=== PATIENT | male | born 1950 | race American Indian/Alaskan Native ===

== ENCOUNTER 2021-03-15 17:07 | Emergency (ER) | payer OTHER ==
--- NOTE | 2021-03-15 20:28 | Event Note ---
ED Screening Note ED Screening Note: 70-year-old -[place] male with past medical history of hypertension presents emerged department complaining of developing presyncope and lightheadedness resulting in him passing out falling on his head striking the top of his head on the concrete ground at work been out for about a minute according to coworkers. Reports no palpitations or chest pain states he feels he may have just been dehydrated but is unsure. Reports taking no blood thinners only takes hypertensive medication which he states he is compliant This initial assessment/diagnostic orders/clinical plan/treatment(s) is/are subject to change based on patients health status, clinical progression and re- assessment by fellow clinical providers in the ED. Further treatment and workup at subsequent clinical providers discretion. Patient/guardian urged not to elope from the ED as their condition may be serious if not clinically assessed and managed. Initial orders include: We will do a syncope evaluation including a CT of the head due to the precipitating factors leading to the head trauma and head trauma itself
[2021-03-15 20:51] LABS: Basophils # (Auto) 0.1 K/mm3 (0.0-0.1); Eosinophils # (Auto) 0.1 K/mm3 (0.0-0.4); Eosinophils % (Auto) 1.2 % (0.0-4.3); Hemoglobin 14.1 gm/dl (11.8-15.2); Lymphocytes # (Auto) 1.6 K/mm3 (1.2-5.4); Mean Corpuscular HGB Conc 34 % (32-34); Mean Corpuscular Volume 93 fl (84-94); Monocytes # (Auto) 0.9 K/mm3 (0.0-0.8); Monocytes % (Auto) 10.9 % (0.0-7.3); Platelet Count 282 K/mm3 (140-440); Red Blood Count 4.43 M/mm3 (3.65-5.03); Red Cell Distribution Width 13.8 % (13.2-15.2)
--- NOTE | 2021-03-15 21:04 | XRay Report ---
CHEST 2 VIEWS INDICATION / CLINICAL INFORMATION: Syncope. COMPARISON: 09/24/2014 FINDINGS: SUPPORT DEVICES: None. HEART / MEDIASTINUM: No significant abnormality. LUNGS / PLEURA: No significant pulmonary or pleural abnormality. No pneumothorax. ADDITIONAL FINDINGS: No significant additional findings. IMPRESSION: 1. No acute findings. Signer Name: Flip Marcial MD Signed: 03/15/2021 8:59 PM Workstation Name: [id number]
[2021-03-15 21:47] LABS: Alanine Aminotransferase 14 units/L (7-56); Albumin 3.7 g/dL (3.9-5); BUN/Creatinine Ratio 20; Blood Urea Nitrogen 18 mg/dL (9-20); Calcium 8.9 mg/dL (8.4-10.2); Hemolysis Index 2
--- NOTE | 2021-03-15 21:54 | Cat Scan Report ---
CT head/brain wo con INDICATION / CLINICAL INFORMATION: 70 years Male; Syncope. TECHNIQUE: Routine CT head without contrast. All CT scans at this location are performed using CT dos e reduction for ALARA by means of automated exposure control. COMPARISON: 09/24/2014 FINDINGS: BRAIN / INTRACRANIAL CONTENTS: Corpus striatal type infarcts suggested bilaterally. Otherwise, no acute hemorrhage, mass effect, midline shift, hydrocephalus, or acute, large territori al infarct. Mild, diffuse cerebral atrophy. There are moderate areas of decreased attenuation in the white matter of the cerebral hemispheres, as well as the gangliocapsular regions. These are nonspecific findings and may be related to microangio yessica (hypertension, diabetes, atherosclerosis), given the patient's age. Pontine disease noted. Find ings have progressed from prior exam. CRANIOCERVICAL JUNCTION: No significant abnormality. ORBITS: No significant abnormality of visualized orbits. SINUSES / MASTOIDS: Visualized paranasal sinuses and mastoid air cells are essentially clear. ADDITIONAL FINDINGS: Subcutaneous soft tissue swelling seen in the left parietal region posteriorly. There is no signs of underlying calvarial fracture. IMPRESSION: 1. No focal mass, and cranial hemorrhage, hydrocephalus, or acute, large territorial infarct. Follow- up with diffusion imaging by MRI, as clinically warranted. Signer Name: Demarcus Meng MD, III Signed: 03/15/2021 9:49 PM Workstation Name: [email or web address]
--- NOTE | 2021-03-16 01:26 | Emergency Department Report ---
Head Injury w/o Laceration - HPI Chief Complaint: Fall Stated Complaint: HEAD INJURY Time Seen by Provider: 03/16/21 01:15 Occurred When: Today Mechanism: Fall Location: Occipital Severity: moderate Head Inj w/o Lac: Yes Headache, Yes Swelling, No Loss of Consciousness, No Nausea, No Blurred Vision, No Altered Mental Status, No Focal Deficit, No Bruising, No Break in Skin, No Bleeding Other History: Patient is a 70-year-old male that presents emergency room with a fall at work. Patient states he hit the back of his head. Patient states he has a lump on the back of his head. Patient denies loss of conscious. Patient states he has a headache. Federico states his headache is a 5 out of 10. Patient states his pain is better with rest and worse with palpation of his scalp. Patient denies dizziness. Patient states he slipped and fell backwards. Patient denies neck pain. Patient denies any other physical symptoms. Patient denies any other pain. Patient denies chest pain or shortness of breath. Patient denies recent travel. Patient denies recent international travel. Patient denies exposure to the novel coronavirus. Patient denies sick contacts. Patient denies fever and chills. Patient denies cough. Patient denies diarrhea. Patient denies coming in contact with anybody with symptoms of the no pete coronavirus. ED General PMH - Past Medical History General Medical History: hypertension Surgical History: noncontributory - Family History Significant Family History: no pertinent family hx - Social History Smoking Status: Former Smoker Alcohol Use: none Drug Use: N ED Neuro ROS - Review of Systems Constitutional: no symptoms reported Eyes (ROS): no symptoms reported Ears, Nose, Mouth, Throat: see HPI Respiratory: no symptoms reported Cardiology: no symptoms reported Gastrointestinal/Abdominal: no symptoms reported Genitourinary: no symptoms reported Musculoskeletal: no symptoms reported Skin: no symptoms reported Neurological: no symptoms reported Endocrine: no symptoms reported Hematologic/Lymphatic: no symptoms reported All Other Systems: Reviewed and Negative Head Injury W/O Lac Exam - Exam General: Vital signs noted. No distress. Alert and acting appropriately. Head: Yes Pupils are PERRL, No Hemotympanum, No Hematoma/Ecchymosis, No Epistaxis, No Stepoff/Deformity, No Laceration, No Abrasion Chest, Abd, & Ext: Yes Clear Lung Sounds, Yes Regular Heart Rhythm, No Neck Pain, No Chest Injury/Pain, No Heart Murmur, No Abdominal Tenderness, No Back Tenderness, No Extremity Injury Neuroligical (Head Inj W/O Lac: Yes Normal Speech, Yes Normal Gait, No Lethargy, No Disorientation, No Focal Numbness, No Focal Weakness Exam: The patient appeared well nourished and normally developed. Vital signs as documented. Head exam is unremarkable except for hematoma noted to the occipital region.. Neck is without jugular venous distension, thyromegaly, or carotid bruits. Carotid upstrokes are brisk bilaterally. Lungs are clear to auscultation and percussion. ED Disposition Clinical Impression: Fall Qualifiers: Encounter type: initial encounter Qualified Code(s): W19.XXXA - Unspecified fall, initial encounter Head injury Qualifiers: Encounter type: initial encounter Qualified Code(s): S09.90XA - Unspecified injury of head, initial encounter Headache Qualifiers: Headache type: post-traumatic Headache chronicity pattern: acute headache Intractability: not intractable Qualified Code(s): G44.319 - Acute post- traumatic headache, not intractable Scalp hematoma Qualifiers: Encounter type: initial encounter Qualified Code(s): S00.03XA - Contusion of scalp, initial encounter Disposition: DC- TO HOME OR SELFCARE Is pt being admited?: No Does the pt Need Aspirin: No Condition: Stable Instructions: Head Injury, Adult, Facial or Scalp Contusion, Contusion Additional Instructions: Patient to follow-up with primary care in 2 to 3 days. Patient to rest. Patient to increase water. Patient to avoid strenuous exercise or heavy lifting until cleared by primary care. Patient to take Tylenol or ibuprofen as needed for pain. . Patient to return to the ER if condition worsens, changes or new symptoms arise. Referrals: PRIMARY CARE, [Primary Care Provider] - 2-3 Days Time of Disposition: 01:30 Medical Decision Making - Lab Data Result Diagrams: 03/15/21 20:41 03/15/21 20:41 - Radiology Data Radiology results: report reviewed, image reviewed Interpreted by me: Chest x-ray: No pneumonia, no pneumothorax, no foreign body, no osseous findings, no acute findings CT head/brain wo con INDICATION / CLINICAL INFORMATION: 70 years Male; Syncope. TECHNIQUE: Routine CT head without contrast. All CT scans at this location are performed using CT dose reduction for ALARA by means of automated exposure control. COMPARISON: 09/24/2014 FINDINGS: BRAIN / INTRACRANIAL CONTENTS: Corpus striatal type infarcts suggested bilaterally. Otherwise, no acute hemorrhage, mass effect, midline shift, hydrocephalus, or acute, large territorial infarct. Mild, diffuse cerebral atrophy. There are moderate areas of decreased attenuation in the white matter of the cerebral hemispheres, as well as the gangliocapsular regions. These are nonspecific findings and may be related to microangiopathy (hypertension, diabetes, atherosclerosis), given the patient's age. Pontine disease noted. Findings have progressed from prior exam. CRANIOCERVICAL JUNCTION: No significant abnormality. ORBITS: No significant abnormality of visualized orbits. SINUSES / MASTOIDS: Visualized paranasal sinuses and mastoid air cells are essentially clear. ADDITIONAL FINDINGS: Subcutaneous soft tissue swelling seen in the left parietal region posteriorly. There is no signs of underlying calvarial fracture. IMPRESSION: 1. No focal mass, and cranial hemorrhage, hydrocephalus, or acute, large territorial infarct. Follow-up with diffusion imaging by MRI, as clinically warranted. CHEST 2 VIEWS INDICATION / CLINICAL INFORMATION: Syncope. COMPARISON: 09/24/2014 FINDINGS: SUPPORT DEVICES: None. HEART / MEDIASTINUM: No significant abnormality. LUNGS / PLEURA: No significant pulmonary or pleural abnormality. No pneumothorax. ADDITIONAL FINDINGS: No significant additional findings. IMPRESSION: 1. No acute findings. - Decision Making Attributes Decision statement: Patient is a 70-year-old male that presents emergency room with complaints of headache and fall at work. Patient had a head CT which was negative for acute finding. Patient had a chest x-ray which was negative for acute finding. Patient had labs done which were essentially unremarkable. Patient is stable for discharge. Patient discharged home. Differential diagnosis: ICH, head injury, fall, I discussed all results and clinical findings with patient. I discussed plan of care with patient. Patient agrees with plan of care. Patient is stable for discharge. Patient will be discharged home. Patient given discharge instructions. Patient voiced understanding of discharge instructions.
[2021-03-16 01:31] VITALS: BP 160/77
== END 2021-03-16 01:40 | disposition home or self-care (01) ==
LOC: ED 17:07
DX: S00.03XA Contusion of scalp, initial encounter (principal); S09.90XA Unspecified injury of head, initial encounter; W18.30XA Fall on same level, unspecified, initial encounter; Y93.89 Activity, other specified; Y92.89 Other specified places as the place of occurrence of the external cause; Y99.8 Other external cause status
CPT/HCPCS: 36415; 70450; 71046; 80053; 83735; 84484; 85025